=== PATIENT | male | born 2000 | race American Indian/Alaskan Native ===

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

== ENCOUNTER 2019-05-07 01:14 | Emergency (ER) | payer SELFPAY ==
[2019-05-07 03:34] LABS: Bilirubin,Urine NEG (Negative); Blood,Urine NEG (Negative); Color,Urine Yellow (Yellow); Mucus,Urine 2+ /HPF; Protein,Urine <15 mg/dL mg/dL (Negative)
--- NOTE | 2019-05-07 07:48 | Emergency Department Report ---
ED General Adult HPI - General Chief complaint: Abdominal Pain Stated complaint: R SIDE BODY PAINS Time Seen by Provider: 05/07/19 07:28 Source: patient Mode of arrival: Ambulatory Limitations: No Limitations - History of Present Illness Initial comments: 18-year-old -Algerian male patient without significant past medical history complains of right sided lower back pain 2 weeks. Patient states the pain feels like a numbness and a tightness and only worsens with movement of the torso. He denies any particular injuries to the area. He admits to frequent heavy lifting during working out. He rates his pain as a 5/10 in severity. He denies trying OTC medications. He also denies any loss of bladder/bowel control, numbness/tingling/weakness in his limbs, or difficulty with ambulation. Severity scale (0 -10): 5 - Related Data Home Medications Medication Instructions Recorded Confirmed Last Taken Methylphenidate HCl [Concerta] 18 mg PO QAM 07/05/15 12/09/15 Unknown Previous Rx's Medication Instructions Recorded Last Taken Type cephALEXin [Keflex] 500 mg PO Q12HR 5 Days cap 12/09/15 Unknown Rx Sulfamethoxazole/Trimethoprim 1 each PO BID #10 tablet 09/05/17 Unknown Rx [Bactrim DS TAB] Ibuprofen [Motrin 800 MG tab] 800 mg PO Q8HR PRN #21 tablet 05/07/19 Unknown Rx methOCARBAMOL [Robaxin TAB] 1,500 mg PO Q8H PRN #30 tablet 05/07/19 Unknown Rx Allergies Allergy/AdvReac Type Severity Reaction Status Date / Time No Known Allergies Allergy Verified 07/05/15 23:02 ED Review of Systems ROS: Stated complaint: R SIDE BODY PAINS Other details as noted in HPI Comment: All other systems reviewed and negative Musculoskeletal: back pain Neurological: numbness. denies: headache, weakness, confusion, abnormal gait ED Past Medical Hx - Past Medical History Previous Medical History?: No Hx Psychiatric Treatment: Yes (ADHD/ADD Bi-Polar) - Surgical History Past Surgical History?: No - Social History Smoking Status: Former Smoker Substance Use Type: None - Medications Home Medications: Home Medications Medication Instructions Recorded Confirmed Last Taken Type Methylphenidate HCl [Concerta] 18 mg PO QAM 07/05/15 12/09/15 Unknown History cephALEXin [Keflex] 500 mg PO Q12HR 5 Days cap 12/09/15 Unknown Rx Sulfamethoxazole/Trimethoprim 1 each PO BID #10 tablet 09/05/17 Unknown Rx [Bactrim DS TAB] Ibuprofen [Motrin 800 MG tab] 800 mg PO Q8HR PRN #21 tablet 05/07/19 Unknown Rx methOCARBAMOL [Robaxin TAB] 1,500 mg PO Q8H PRN #30 tablet 05/07/19 Unknown Rx ED Physical Exam - General Limitations: No Limitations General appearance: alert, in no apparent distress - Head Head exam: Present: atraumatic, normocephalic - Eye Eye exam: Present: normal appearance - ENT ENT exam: Present: mucous membranes moist - Neck Neck exam: Present: normal inspection, full ROM. Absent: tenderness - Respiratory Respiratory exam: Absent: respiratory distress - Cardiovascular Cardiovascular Exam: Present: regular rate - GI/Abdominal GI/Abdominal exam: Present: soft. Absent: distended, tenderness, guarding, rebound, rigid - Rectal Rectal exam: Present: deferred - Extremities Exam Extremities exam: Present: normal inspection, full ROM - Back Exam Back exam: Present: full ROM, paraspinal tenderness (right upper lumbar). Absent: vertebral tenderness - Neurological Exam Neurological exam: Present: alert, oriented X3, normal gait. Absent: motor sensory deficit - Expanded Neurological Exam Expanded Sensory exam: Upper Extremity Light Touch: Normal, Lower Extremity Light Touch: Normal Motor strength exam: RUE: 5, LUE: 5, RLE: 5, LLE: 5 - Psychiatric Psychiatric exam: Present: normal affect, normal mood ED Course Vital Signs 05/07/19 01:36 Temperature 98.4 F Pulse Rate 72 Respiratory 18 Rate Blood Pressure 117/77 O2 Sat by Pulse 100 Oximetry ED Medical Decision Making - Lab Data Lab Results 05/07/19 Range/Units Unknown Urine Color Yellow (Yellow) Urine Turbidity Clear (Clear) Urine pH 5.0 (5.0-7.0) Ur Specific Mobile 1.027 (1.003-1.030) Urine Protein <15 mg/dl (Negative) mg/dL Urine Glucose (UA) Neg (Negative) mg/dL Urine Ketones Tr (Negative) mg/dL Urine Blood Neg (Negative) Urine Nitrite Neg (Negative) Urine Bilirubin Neg (Negative) Urine Urobilinogen 2.0 (<2.0) mg/dL Ur Leukocyte Esterase Neg (Negative) Urine WBC (Auto) 3.0 (0.0-6.0) /HPF Urine RBC (Auto) 2.0 (0.0-6.0) /HPF Urine Mucus 2+ /HPF - Medical Decision Making 18-year-old -Algerian male patient without significant past medical history complains of right sided lower back pain 2 weeks. Neuro exam is no rmal. Abdominal exam is normal. Pain is only elicited with range of motion of the time. There is. Vertebral tenderness in the lumbar area. Symptoms appear to be due to a lumbar radiculopathy or muscle strain. Patient is stable for discharge home with conservative treatment. Recommend follow-up at [facility] if symptoms continue. Discussed very strict return precautions in detail with patient who verbalizes understanding. Critical care attestation.: If time is entered above; I have spent that time in minutes in the direct care of this critically ill patient, excluding procedure time. ED Disposition Clinical Impression: Lumbar radiculopathy, acute Disposition: DC-01 TO HOME OR SELFCARE Is pt being admited?: No Condition: Stable Instructions: Lumbar Radiculopathy (ED), Low Back Strain (ED) Prescriptions: Ibuprofen [Motrin 800 MG tab] 800 mg PO Q8HR PRN #21 tablet PRN Reason: pain methOCARBAMOL [Robaxin TAB] 1,500 mg PO Q8H PRN #30 tablet PRN Reason: muscle tightness Referrals: [facility] [Provider Group] - 3-5 Days
[2019-05-07 08:09] VITALS: BP 123/81
== END 2019-05-07 08:09 | disposition home or self-care (01) ==
LOC: ED 01:14
DX: M54.16 Radiculopathy, lumbar region (principal); Z87.891 Personal history of nicotine dependence; Z79.899 Other long term (current) drug therapy
CPT/HCPCS: 81001

== ENCOUNTER 2020-02-04 01:15 | Emergency (ER) | payer SELFPAY ==
[2020-02-04 02:16] VITALS: BP 115/77
--- NOTE | 2020-02-04 03:26 | XRay Report ---
LUMBAR SPINE 3 VIEWS INDICATION / CLINICAL INFORMATION: back pain. COMPARISON: None available. FINDINGS: VERTEBRAE: No fracture. Mild scoliosis convexity towards left centered at L4. DISC SPACES:No significant abnormality. FACET JOINTS:No significant abnormality. ADDITIONAL FINDINGS: None. IMPRESSION: 1. No significant abnormality. Signer Name: Terry Villafana MD Signed: 02/04/2020 3:21 AM Workstation Name: [id number]
--- NOTE | 2020-02-04 05:39 | Emergency Department Report ---
ED Neuro Deficit HPI - General Chief Complaint: Back Pain/Injury Stated Complaint: LEG PAIN AND NUMBNESS BILATERALLY Time Seen by Provider: 02/04/20 04:58 Source: patient, EMS Mode of arrival: Stretcher Limitations: No Limitations - History of Present Illness Initial Comments: 19-year-old -[place] male presents emergency department complaining of a 1 to 1-1/2-month history of back pain associated with numbness and tingling to his lower extremity which he states is gotten progressively worsening since the onset. No loss of bowel bladder no saddle paresthesia but reports sometimes having increased numbness and tingling to his feet. Reports no fever, chills, sweats no chest pain no palpitations no -: Gradual Location: left leg, right leg Severity: mild Quality: weak, numb Improves With: none Worsens With: none Associated Symptoms: denies: confusion, chest pain, cough, diaphoresis, loss of appetite, malise, shortness of breath, syncope, weakness - Related Data Home Medications: Home Medications Medication Instructions Recorded Confirmed Last Taken Methylphenidate HCl [Concerta] 18 mg PO QAM 07/05/15 12/09/15 Unknown Previous Rx's Medication Instructions Recorded Last Taken Type cephALEXin [Keflex] 500 mg PO Q12HR 5 Days cap 12/09/15 Unknown Rx Sulfamethoxazole/Trimethoprim 1 each PO BID #10 tablet 09/05/17 Unknown Rx [Bactrim DS TAB] Ibuprofen [Motrin 800 MG tab] 800 mg PO Q8HR PRN #21 tablet 05/07/19 Unknown Rx methOCARBAMOL [Robaxin TAB] 1,500 mg PO Q8H PRN #30 tablet 05/07/19 Unknown Rx predniSONE [Deltasone] 50 mg PO QDAY #7 tab 02/04/20 Unknown Rx Allergies/Adverse Reactions: Allergies Allergy/AdvReac Type Severity Reaction Status Date / Time No Known Allergies Allergy Verified 07/05/15 23:02 ED Review of Systems ROS: Stated complaint: LEG PAIN AND NUMBNESS BILATERALLY Other details as noted in HPI Comment: All other systems reviewed and negative ED Past Medical Hx - Past Medical History Previous Medical History?: Yes Hx Psychiatric Treatment: Yes (ADHD/ADD Bi-Polar) - Surgical History Past Surgical History?: No - Social History Smoking Status: Never Smoker Substance Use Type: Marijuana - Medications Home Medications: Home Medications Medication Instructions Recorded Confirmed Last Taken Type Methylphenidate HCl [Concerta] 18 mg PO QAM 07/05/15 12/09/15 Unknown History cephALEXin [Keflex] 500 mg PO Q12HR 5 Days cap 12/09/15 Unknown Rx Sulfamethoxazole/Trimethoprim 1 each PO BID #10 tablet 09/05/17 Unknown Rx [Bactrim DS TAB] Ibuprofen [Motrin 800 MG tab] 800 mg PO Q8HR PRN #21 tablet 05/07/19 Unknown Rx methOCARBAMOL [Robaxin TAB] 1,500 mg PO Q8H PRN #30 tablet 05/07/19 Unknown Rx predniSONE [Deltasone] 50 mg PO QDAY #7 tab 02/04/20 Unknown Rx ED Neuro Physical Exam - General Limitations: No Limitations General appearance: alert, in no apparent distress - Head Head exam: Present: atraumatic, normocephalic - Eye Eye exam: Present: normal appearance, PERRL, EOMI. Absent: conjunctival injection, periorbital swelling, periorbital tenderness Pupils: Present: normal accommodation. Absent: unequal, mydriatic - ENT ENT exam: Present: normal exam, normal orophraynx, mucous membranes moist, TM's normal bilaterally - Neck Neck exam: Present: normal inspection, full ROM - Respiratory Respiratory exam: Present: normal lung sounds bilaterally. Absent: respiratory distress, wheezes, rales, chest wall tenderness, accessory muscle use - Cardiovascular Cardiovascular Exam: Present: regular rate, normal rhythm. Absent: systolic murmur, diastolic murmur, rubs, gallop - GI/Abdominal GI/Abdominal exam: Present: soft, normal bowel sounds. Absent: distended, tenderness, guarding, rebound, rigid, hyperactive bowel sounds, hypoactive bowel sounds, organomegaly, mass, bruit - Rectal Rectal exam: Present: deferred - Extremities Exam Extremities exam: Present: normal inspection, normal capillary refill - Back Exam Back exam: Present: normal inspection, CVA tenderness (R), CVA tenderness (L) - Neurological Exam Neurological exam: Present: alert, oriented X3 - Psychiatric Psychiatric exam: Present: normal affect, normal mood - Skin Skin exam: Present: warm, dry, intact, normal color. Absent: rash ED Course Vital Signs 02/04/20 02:08 Temperature 98.6 F Pulse Rate 92 H Respiratory 18 Rate Blood Pressure 115/77 O2 Sat by Pulse 96 Oximetry - Consultations Consultation #1: 02/04/20 05:49 Case was discussed with attending Dr. Neumann ED home agrees with the plan Critical care attestation.: If time is entered above; I have spent that time in minutes in the direct care of this critically ill patient, excluding procedure time. ED Disposition Clinical Impression: Neuropathy, Chronic back pain Disposition: DC-01 TO HOME OR SELFCARE Is pt being admited?: No Does the pt Need Aspirin: No Condition: Stable Instructions: Peripheral Neuropathy (ED) Additional Instructions: Please please sure to follow-up with your neurologist for definitive management and treatment of your lower extremity neuropathy Prescriptions: predniSONE [Deltasone] 50 mg PO QDAY #7 tab Referrals: SUSY GUNN MD [Staff Physician] - 3-5 Days OMID WEEKS MD [Staff Physician] - 3-5 Days WOLF MENDEZ MD [Referring] - 3-5 Days KRISTIN SALCEDO MD [Staff Physician] - 3-5 Days TALIA BA MD [Referring] - 3-5 Days
== END 2020-02-04 06:00 | disposition home or self-care (01) ==
LOC: ED 01:15
DX: G62.9 Polyneuropathy, unspecified (principal); M54.9 Dorsalgia, unspecified; G89.29 Other chronic pain; F12.10 Cannabis abuse, uncomplicated; Z79.899 Other long term (current) drug therapy
CPT/HCPCS: 72100; 99283

== ENCOUNTER 2020-12-14 15:59 | Emergency (ER) | payer SELFPAY ==
[2020-12-14 16:40] VITALS: BP 123/79
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
[2020-12-14] MEDS ORDERED: IBUPROFEN 600 MG TAB PO ONE (18:05)
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
== END 2020-12-14 22:02 | disposition left against medical advice (07) ==
LOC: ED 15:59
DX: S61.011A Laceration without foreign body of right thumb without damage to nail, initial encounter (principal); Z53.21 Procedure and treatment not carried out due to patient leaving prior to being seen by health care provider; Y08.89XA Assault by other specified means, initial encounter; Y93.89 Activity, other specified; Y92.89 Other specified places as the place of occurrence of the external cause; Y99.8 Other external cause status